=== PATIENT | female | born 1955 | race Caucasian/White ===

== ENCOUNTER 2018-08-11 06:16 | Day surgery (SDC) | payer MEDICAID ==
[2018-08-11] MEDS ORDERED: ROCURONIUM 50 MG INJ (06:36)
[2018-08-11] MEDS ORDERED: NEOSTIGMINE 3 MG/3 ML SYRINGE (06:36)
[2018-08-11] MEDS ORDERED: GLYCOPYRROLATE 0.4 MG INJ (06:36)
[2018-08-11] MEDS ORDERED: LIDOCAINE 2% (SDV) 5 ML INJ (06:36)
[2018-08-11] MEDS ORDERED: PROPOFOL 20 ML (06:36)
[2018-08-11] MEDS ORDERED: DEXAMETHASONE 4 MG/ML 1 ML INJ ×2 (06:37→07:00)
[2018-08-11] MEDS ORDERED: FENTAnyl 50 MCG/ML VIAL (06:37)
[2018-08-11] MEDS ORDERED: MIDAZOLAM 1 MG/ML 2 ML INJ (06:37)
[2018-08-11] MEDS ORDERED: ONDANSETRON 4 MG INJ (06:38)
[2018-08-11] MEDS ORDERED: SUCCINYLCHOLINE CHLORIDE 100 MG/5 ML SYG IV (06:38)
[2018-08-11 06:39] LABS: ADD MAN DIFF? NO
[2018-08-11 06:46] LABS: WHITE BLOOD COUNT 6.7 10^3/ul (4.8-10.8)
[2018-08-11 06:46] LABS: BASOPHILS % 0.4 % (0.0-2.0); EOSINOPHILS # 0.1 10^3/ul (0.0-0.5); EOSINOPHILS % 1.8 % (0.0-7.0); HEMATOCRIT 35.9 % (37.0-47.0); HEMOGLOBIN 11.1 g/dl (12.0-16.0); LYMPHOCYTES # 1.6 10^3/ul (0.8-2.9); LYMPHOCYTES % 23.9 % (15.0-51.0); MEAN CORPUSCULAR HEMOGLOBIN 25.2 pg (29.0-33.0); MEAN CORPUSCULAR HGB CONC 30.9 g/dl (32.0-37.0); MEAN CORPUSCULAR VOLUME 81.6 fl (82.0-101.0); MEAN PLATELET VOLUME 8.9 fl (7.4-10.4); MONOCYTE # 0.5 10^3/ul (0.3-0.9); MONOCYTES % 7.6 % (0.0-11.0); NEUTROPHIL # 4.4 10^3/ul (1.6-7.5); NEUTROPHILS % 65.9 % (39.0-77.0); PLATELET COUNT 261 10^3/UL (140-415); RED CELL DISTRIBUTION WIDTH 13.6 % (11.5-14.5)
[2018-08-11] MEDS ORDERED: CEFAZOLIN 1 GM INJ (07:00)
[2018-08-11] MEDS ORDERED: CEFAZOLIN 2 GM/50 ML (PMX) 50 ML IVPB (07:00)
[2018-08-11 07:04] LABS: INR 0.95; PROTIME 12.8 Sec (11.9-14.9)
[2018-08-11 07:05] LABS: ALANINE AMINOTRANSFERASE 32 IU/L (13-69); ALBUMIN 4.3 g/dl (3.3-4.9); ALBUMIN/GLOBULIN RATIO 1.53; ALKALINE PHOSPHATASE 81 IU/L (42-121); ANION GAP 9 (5-13); ASPARTATE AMINO TRANSFERASE 20 IU/L (15-46); BILIRUBIN,INDIRECT 0.9 mg/dl (0-1.1); BILIRUBIN,TOTAL 0.9 mg/dl (0.2-1.3); BLOOD UREA NITROGEN 20 mg/dl (7-20); CALCIUM 9.7 mg/dl (8.4-10.2); CARBON DIOXIDE 28 mmol/L (21-31); CHLORIDE 105 mmol/L (97-110); CREATININE 0.63 mg/dl (0.44-1.00); Estimated GFR > 60 mL/min (>60); GLUCOSE 130 mg/dl (70-220); PARTIAL THROMBOPLASTIN TIME 26.8 Sec (23.0-35.0); POTASSIUM 4.1 mmol/L (3.5-5.1); SODIUM 142 mmol/L (135-144); TOTAL PROTEIN 7.1 g/dl (6.1-8.1)
[2018-08-11] MEDS: SOD CHLORIDE 0.9% 1,000 ML IV (07:10)
[2018-08-11] MEDS ORDERED: HEPARIN 1000 UNITS/ML 10 ML INJ (07:45)
[2018-08-11] MEDS: LIDOCAINE 1% (STERILE-PAK) 30 ML INJ (08:42)
== END 2018-08-11 11:00 | disposition home or self-care (01) ==
LOC: SDS 06:16
DX: Z45.2 Encounter for adjustment and management of vascular access device (principal); Z85.3 Personal history of malignant neoplasm of breast; I10 Essential (primary) hypertension; E11.9 Type 2 diabetes mellitus without complications
CPT/HCPCS: 36590; 71045; 80053; 82962; 85025; 85610; 85730; 88300; 93005